=== PATIENT | female | born 1995 | race Caucasian/White ===

== ENCOUNTER 2021-06-05 20:22 | Emergency (ER) | payer MEDICAID, OTHER ==
[~2021-06-05] VITALS: Ht 177.8 cm; Wt 56.7 kg
[2021-06-05] MEDS ORDERED: FLUORESCEIN SODIUM 1 MG STRIP OP ONE (22:15)
[2021-06-05] MEDS ORDERED: TETRACAINE HCL 0.5% OPHT DROP 2 ML BOTTLE OP ONE (22:15)
--- NOTE | 2021-06-05 22:30 | NUR ---
at bedside for MSE.
[2021-06-05] MEDS ORDERED: FLUORESCEIN SODIUM 1 MG STRIP ONE (22:35)
[2021-06-05] MEDS ORDERED: TETRACAINE HCL 0.5% OPHT DROP 2 ML BOTTLE ONE (22:36)
--- NOTE | 2021-06-06 00:55 | NUR ---
Patient sent to CT scan via wheelchair assisted by [employer]. Urine specimen sent to lab.
--- NOTE | 2021-06-06 01:15 | NUR ---
Patient came back from CT scan. NAD.
[2021-06-06 01:45] LABS: *URINE HCG, QUAL NEGATIVE (NEGATIVE)
--- NOTE | 2021-06-06 02:24 | NUR ---
Patient discharged to home in stable condition. Written and verbal after care instructions given. Patient verbalizes understanding of instructions. Stressed follow up or return to ER for worsening s/s. VSS. NAD.
[2021-06-06 02:26] VITALS: BP 126/60
== END 2021-06-06 02:25 | disposition home or self-care (01) ==
LOC: ER 20:24
DX: H53.451 Other localized visual field defect, right eye (principal)
CPT/HCPCS: 70450; 84703; A4663